=== PATIENT | male | born 2005 | race Two or more races ===

== ENCOUNTER 2025-01-09 18:02 | Emergency (ER) | payer MEDICAID, SELFPAY ==
[2025-01-09 18:13] VITALS: BP 144/87; PULSE 80; RESP 18; TEMP 36.7; O2SAT 98
[2025-01-09 18:15] VITALS: BMI 22.1
--- NOTE | 2025-01-09 18:41 | XR_ITS ---
Examination: Foot, right, 3 views Technique: AP, oblique, lateral views foot, 3 views Date and time of exam: March 11, 2025 1849 hours INDICATIONS: Laceration to the foot today foot pain FINDINGS: Soft tissue defect at the first metatarsophalangeal joint No fracture. No foreign body No dislocation IMPRESSION: No opaque foreign body
--- NOTE | 2025-01-09 18:43 | PD.EDANKLE ---
Lower Extremity Injury RME/HPI General Chief Complaint: Ankle/Foot Injury Stated Complaint: PAIN D/T CUT RIGHT FOOT 24 HOURS AGO Time Seen by Provider: 01/09/25 18:05 Arrival date/time: 01/09/25 18:02 RME / HPI RME / HPI Narrative: 19-year-old male presents to the ED with a complaint of a right foot injury. [place], and sustained an injury with laceration to the dorsal aspect of his right MTP joint. He has painful weightbearing. He did not come yesterday because he did not have a ride. Related Data Allergies Allergy/AdvReac Type Severity Reaction Status Date / Time No Known Allergies Allergy Verified 01/09/25 18:07 Review of Systems Review of Systems Systems Reviewed: All systems reviewed, normal except as documented Past Medical History Social History SMOKING STATUS: Current some day smoker ED Exam Narrative Physical exam: A&O, afebrile and non-toxic appearing, [place]raini-speaking 19-year-old male, no acute distress. Lung are clear, RRR. Right foot with a superficial laceration to the dorsal aspect of the right great toe, MTP joint. He has tenderness with movement of the great toe. He also has tenderness to palpation at the MTP joint both above and below. Moves all extremities well. Course Course Course Narrative: Patient was given ibuprofen 600 mg p.o. Tdap was ordered. XR right foot reveals: Orders Category Date Time Status TDap [Obtain Tdap Consent] X1 Care 01/09/25 18:41 Active XR foot comp RT min 3V Stat Exams 01/09/25 18:41 Completed Ibuprofen Tab [Motrin Tab] Med 01/09/25 18:41 Discontinued 600 mg PO X1 ONE TET,DIP/PERT AC (Adult)-Tdap [Boostrix Adult (Tdap) Med 01/09/25 18:47 Discontinued Vacc] 0.5 ml IMI .ONCE ONE Vital Signs Vital signs: Vital Signs Temperature 98.0 F 01/09/25 18:13 Pulse Rate 80 01/09/25 18:13 Respiratory Rate 18 01/09/25 18:13 Blood Pressure 144/87 H 01/09/25 18:13 Pulse Oximetry (%) 98 01/09/25 18:13 Oxygen Delivery Method Room Air 01/09/25 18:13 Extremity Injury, Lower Medications / Prescriptions Medication administrations:: Medication Administration History Discontinued Medications Diphtheria/Tetanus/Acell Pertussis (Diphth,Pertuss(Acell),Tet Vac 0.5 Ml Syr- Adult) 0.5 ml IMi .ONCE ONE Stop: 01/09/25 18:48 Last Admin: 01/09/25 19:38 Dose: 0.5 ml Documented By: Ibuprofen (Ibuprofen Tab 600 Mg Tablet) 600 mg PO X1 ONE Stop: 01/09/25 18:42 Last Admin: 01/09/25 19:37 Dose: 600 mg Documented By: Discharge Plan Plan Patient Disposition: HOME (Self Care) Discharge Disposition comment: Stable and improved Prescriptions/Referrals Referrals: No Primary/Family,Physician [Primary Care Provider] - In 1 week Patient/Caregiver Discharge Instructions Print Language: Bahraini Stand Alone Forms: Kim Award Info., Patient Portal Info Letter
[2025-01-09] MEDS: IBUPROFEN TAB 600 MG TABLET PO (19:37)
[2025-01-09] MEDS: DIPHTH,PERTUSS(ACELL),TET VAC 0.5 ML SYR- ADULT IMi (19:38)
== END 2025-01-09 21:26 | disposition home or self-care (01) ==
PROVIDERS: Emergency Provider Emergency Medicine
DX: S91.311A Laceration without foreign body, right foot, initial encounter (principal); Z23 Encounter for immunization; F17.210 Nicotine dependence, cigarettes, uncomplicated; W45.8XXA Other foreign body or object entering through skin, initial encounter; Y93.31 Activity, mountain climbing, rock climbing and wall climbing; Y92.828 Other wilderness area as the place of occurrence of the external cause
CPT/HCPCS: 73630; 90471; 90715; 99283; A9270

== ENCOUNTER 2025-04-12 20:38 | Emergency (ER) | payer SELFPAY ==
[2025-04-12 21:31] VITALS: BP 137/81; PULSE 89; RESP 18; TEMP 36.8; O2SAT 98; BMI 25.0
--- NOTE | 2025-04-12 22:09 | PD.EDEYE ---
ED Eye Problem RME/HPI General Chief complaint: Eye Problems Stated complaint: EYE HURT AND WATERY Time Seen by Provider: 04/12/25 22:04 Arrival date/time: 04/12/25 20:38 19M with no significant PMH presents to ED with several weeks of bilateral eye irritation and tearing. Patient denies vision changes and known initial injury. Limitations: no limitations Related Data Previous Rx's ?Medication ?Instructions ?Recorded ibuprofen 600 mg tablet 600 mg PO Q8H PRN pain #15 tabs 01/09/25 erythromycin 5 mg/gram (0.5 %) eye 1 applic ophthalmic (eye) BID 7 04/12/25 ointment days #3.5 grams Allergies Allergy/AdvReac Type Severity Reaction Status Date / Time No Known Allergies Allergy Verified 04/12/25 20:39 Review of Systems Review of Systems Systems Reviewed: All systems reviewed, normal except as documented Eyes Eyes: Reports as per HPI and Reports irritation Past Medical History Social History SMOKING STATUS: Current every day smoker ED Exam General Limitations: Present no limitations General appearance: Present alert and in no apparent distress Head Head exam: Present atraumatic Eye Eye exam: Present PERRL, EOMI and conjunctival injection (minimal) Neck Neck exam: Present normal inspection, full ROM and trachea midline Chest Chest inspection: Present normal inspection and symmetric chest wall rise Neurological Exam Neurological exam: Present alert and oriented X3 Psychiatric Psychiatric exam: Present normal affect and normal mood Skin Skin exam: Present warm, dry, intact and normal color Course Quality Measures none Vital Signs Vital signs: Vital Signs Temperature 98.2 F 04/12/25 21:31 Pulse Rate 89 04/12/25 21:31 Respiratory Rate 18 04/12/25 21:31 Blood Pressure 137/81 H 04/12/25 21:31 Pulse Oximetry (%) 98 04/12/25 21:31 Oxygen Delivery Method Room Air 04/12/25 21:31 O2 at 98% on RA and WNLs Eye MDM Narrative MDM Narrative:: 19M with no significant PMH presents to ED with several weeks of bilateral eye irritation and tearing. Patient denies vision changes and known initial injury. Physical exam reveals normal pupil response and EOM. No obvious FB with only minimal bilateral conjunctivitis. Eyelids normal. Patient is afebrile, calm, and alert. Likely allergic-etiology. Will give ABX cream as little risk involved. Partner Management Consultant given. Patient data External records reviewed:: None Clinical information provided by:: patient Social determinants that could affect healthcare access:: none Patient has the following chronic illnesses:: none How is presenting disease/condition affected by chronic disease/condition?: no chronic disease Evaluation data The following diagnostics were reviewed and interpreted by me:: other (specify) (none) Lab and/or radiology exams considered but not ordered:: not ordered Interpretation Summary: n/a Medications / Prescriptions Medications or Prescriptions considered but not ordered:: not ordered Medication administrations:: n/a Consultations Consultation(s) initiated? (list below): No Diagnosis Eye Problem Differential Diagnosis: corneal abrasion, conjunctivitis, acute iritis, hyphema, periorbital cellulitis, subconjunctival hemorrhage, glaucoma, corneal ulcer, ruptured globe and other (corneal irritation) Most likely diagnosis given after review of the tests above:: corneal irritation Admission Indicated Admission indicated?: not indicated Admission Request Was there a request for admission?: No Disposition Plan Disposition Plan: Discharge Discharge Attestation Discharge Attestation: The patient and all family members were given an opportunity to ask questions and understood the discharge instructions. Discharge instructions specifically effects, indications for sooner follow up or return to the emergency department, and the expected course of current diagnosis. Patient condition: Stable Discharge Plan Plan Patient Disposition: HOME (Self Care) Discharge Disposition comment: Stable Prescriptions/Referrals Prescriptions/Med Rec: New erythromycin 5 mg/gram (0.5 %) ointment 1 applic ophthalmic (eye) BID 7 Days Qty: 3.5 0RF No Action ibuprofen 600 mg tablet 600 mg PO Q8H PRN (Reason: pain) Qty: 15 0RF Problem List Clinical Impression: Corneal irritation of both eyes Patient/Caregiver Discharge Instructions Education Materials: How the Eye Works Additional Instructions: Please follow-up with PCP within 24-48 hours and return immediately if symptoms worsen. See eye doctor soon. Print Language: Turkish Stand Alone Forms: Patient Portal Info Letter THAI/FELIX Supervising Physician THAI/FELIX Supervising Physician: Dr. Alejandre
== END 2025-04-12 22:12 | disposition home or self-care (01) ==
LOC: SERX 22:22
PROVIDERS: Emergency Provider Emergency Medicine
DX: H57.89 Other specified disorders of eye and adnexa (principal)
CPT/HCPCS: 99281